=== PATIENT | male | born 2005 | race Asian ===

== ENCOUNTER 2024-07-10 06:20 | Inpatient (IN) | payer BC, OTHER, SELFPAY ==
[2024-07-10] MEDS ORDERED: fentaNYL 50 mcg/mL 1 mL Vial ONE ×2 (06:31→07:22)
[2024-07-10] MEDS ORDERED: CEFAZOLIN 2 GM VIAL ONE (06:32)
[2024-07-10] MEDS ORDERED: Sodium Chloride 0.9% 100 ML ONE (06:32)
[2024-07-10] MEDS ORDERED: Boostrix 0.5 ML (Tdap) VIAL (>/=7 yrs of age) ONE (06:33)
[2024-07-10 06:41] LABS: Hematocrit 40.6 % (42.0-52.0); Hemoglobin 12.6 g/dL (14.0-18.0); Mean Corpuscular Hemoglobin 19.4 pg (27.0-31.0); Mean Corpuscular Volume 62.6 fL (78.0-98.0); Mean Platelet Volume 8.7 fL (7.4-10.4); Platelet Count 316 10x3/uL (130-400); RBC Distribution Width 17.5 % (11.5-14.5); Red Blood Cell (RBC) Count 6.49 mill/uL (4.70-6.10)
[2024-07-10 06:47] LABS: Alcohol 167.1 mg/dL (Less than 10)
[2024-07-10 06:50] LABS: ALT (SGPT) 64 U/L (Less than 45); AST (SGOT) 192 U/L (11-34); Albumin 4.3 g/dL (3.1-4.5); Alkaline Phosphatase 59 U/L (40-110); Anion Gap 20 mmol/L (10-20); BUN (Urea Nitrogen) 9 mg/dL (8.9-20.6); Bilirubin, Total 1.1 mg/dL (0.3-1.2); Calc. Creatinine Clearance 0 mL/min (70-130); Calcium 8.7 mg/dL (7.8-10.44); Carbon Dioxide 17 mmol/L (22-29); Chloride 111 mmol/L (98-107); Estimated GFR 102; Glucose 116 mg/dL (70-105); Lipase 26 U/L (8-78); Potassium 3.8 mmol/L (3.5-5.1); Protein, Total 7.3 g/dL (6.0-8.3); Sodium 144 mmol/L (136-145)
[2024-07-10 06:53] LABS: INR-International Normal Ratio 1.2; PTT 30.6 sec (22.9-36.1)
[2024-07-10 06:54] LABS: Troponin I Less than 0.010 ng/mL (< 0.028)
[2024-07-10 07:18] LABS: Band 3 % (5-11); Lymphocytes 4 % (21-51); Microcytosis SLIGHT = 6-15 cells HPF (0-5); Monocytes 4 % (0-10); Neutrophil 89 % (42-75); Platelet Adequacy Comment Platelets Normal; Polychromasia SLIGHT = 2-3 cells HPF (0-2); Toxic Granulation SLIGHT; Vacuoles SLIGHT
[2024-07-10] MEDS ORDERED: Glucagon 1 MG/ML KIT IM PRN (07:58)
[2024-07-10] MEDS ORDERED: hydrALAZINE 20 MG/ML VIAL SLOW IVP PRN (07:58)
[2024-07-10] MEDS ORDERED: Dextrose 50% Abboject 50 ML SYRINGE SLOW IVP PRN (07:58)
[2024-07-10] MEDS ORDERED: Dextrose 5% in Water 1,000 ML IV PRN (07:58)
[2024-07-10] MEDS ORDERED: Ondansetron PF 4 MG/2 ML Vial IVP PRN (07:58)
[2024-07-10] MEDS ORDERED: Ondansetron ODT 4 MG TAB PO PRN (07:58)
[2024-07-10] MEDS ORDERED: Acetaminophen 325 MG TAB PO PRN (07:58)
[2024-07-10] MEDS: TETANUS, DIPHTHERIA TOX,ADULT (TDVAX) 0.5 ML VIAL IM ONE (11:41)
[2024-07-10 11:53] LABS: Hematocrit 39.3 % (42.0-52.0); Hemoglobin 12.4 g/dL (14.0-18.0)
[2024-07-10] MEDS ORDERED: Iopamidol 370 76% 100 ML VIAL ONE ×2 (12:41→12:46)
[2024-07-10] MEDS ORDERED: Methocarbamol 500 MG TAB ONE (13:53)
[2024-07-10] MEDS ORDERED: HYDROcodone/Acetaminophen 5/325 mg Tablet ONE (13:54)
[2024-07-10] MEDS: HYDROcodone/Acetaminophen 5/325 mg Tablet PO PRN (13:59)
[2024-07-10] MEDS: Methocarbamol 500 MG TAB PO PRN (14:01)
[2024-07-10 16:14] VITALS: BMI 25.0
[2024-07-10 18:54] LABS: Hematocrit 38.6 % (42.0-52.0); Hemoglobin 11.9 g/dL (14.0-18.0)
[2024-07-11] MEDS: Melatonin 3 MG TAB PO PRN (00:16)
[2024-07-11 00:56] LABS: Hematocrit 36.3 % (42.0-52.0); Hemoglobin 11.5 g/dL (14.0-18.0)
[2024-07-11] MEDS: Morphine 2 MG/ML VIAL SLOW IVP SCH (01:02)
[2024-07-11] MEDS: Acetaminophen/Codeine 30-300mg Tablet PO PRN (01:57)
[2024-07-11 05:06] LABS: #Basophils 0.03 10x3/uL (0.0-0.2); %Basophils 0.2 % (0.0-1.0); %Eosinophils 0.4 % (0.0-10.0); %Lymphocytes 6.1 % (21.0-51.0); %Neutrophils 84.4 % (42.0-75.0); Hematocrit 36.7 % (42.0-52.0); Hemoglobin 11.4 g/dL (14.0-18.0); Mean Corpuscular HGB CONC 31.1 g/dL (32.0-36.0); Mean Corpuscular Hemoglobin 19.2 pg (27.0-31.0); Mean Corpuscular Volume 61.7 fL (78.0-98.0); Mean Platelet Volume 9.4 fL (7.4-10.4); Platelet Count 221 10x3/uL (130-400); RBC Distribution Width 16.6 % (11.5-14.5); Red Blood Cell (RBC) Count 5.95 mill/uL (4.70-6.10)
[2024-07-11 05:22] LABS: ALT (SGPT) 41 U/L (Less than 45); AST (SGOT) 57 U/L (11-34); Albumin 3.8 g/dL (3.1-4.5); Alkaline Phosphatase 49 U/L (40-110); Anion Gap 14 mmol/L (10-20); BUN (Urea Nitrogen) 11 mg/dL (8.9-20.6); Bilirubin, Total 1.8 mg/dL (0.3-1.2); Calc. Creatinine Clearance 167 mL/min (70-130); Calcium 8.8 mg/dL (7.8-10.44); Carbon Dioxide 23 mmol/L (22-29); Chloride 103 mmol/L (98-107); Estimated GFR 132; Globulin 2.8 g/dL (2.4-3.5); Glucose 102 mg/dL (70-105); Potassium 3.8 mmol/L (3.5-5.1); Protein, Total 6.6 g/dL (6.0-8.3); Sodium 136 mmol/L (136-145)
[2024-07-11] MEDS: Enoxaparin 40 MG (0.4 mL) SYRINGE SC SCH (20:03)
[2024-07-12 09:19] LABS: #Basophils 0.07 10x3/uL (0.0-0.2); %Basophils 0.4 % (0.0-1.0); %Eosinophils 0.7 % (0.0-10.0); %Lymphocytes 7.9 % (21.0-51.0); %Monocytes 6.6 % (0.0-10.0); %Neutrophils 83.6 % (42.0-75.0); Hematocrit 42.4 % (42.0-52.0); Hemoglobin 12.9 g/dL (14.0-18.0); Mean Corpuscular HGB CONC 30.4 g/dL (32.0-36.0); Mean Corpuscular Hemoglobin 19.1 pg (27.0-31.0); Mean Corpuscular Volume 62.8 fL (78.0-98.0); Platelet Count 232 10x3/uL (130-400); RBC Distribution Width 17.7 % (11.5-14.5); Red Blood Cell (RBC) Count 6.75 mill/uL (4.70-6.10); Reflex for Review?? YES
[2024-07-12 10:08] LABS: Band 2 % (5-11); Lymphocytes 7 % (21-51); Macrocytosis SLIGHT = 6-15 cells HPF (0-5); Microcytosis SLIGHT = 6-15 cells HPF (0-5); Monocytes 9 % (0-10); Neutrophil 78 % (42-75); Platelet Adequacy Comment Platelets Normal; Polychromasia SLIGHT = 2-3 cells HPF (0-2); Reactive Lymphocytes 4 % (0-10); Schistocytes SLIGHT = 2-5 cells HPF (0-1); Target Cells SLIGHT = 2-5 cells HPF (0-1); Toxic Granulation SLIGHT; Vacuoles SLIGHT
[2024-07-12 17:16] VITALS: BP 115/79; TEMP 98.1
== END 2024-07-12 19:45 | disposition home or self-care (01) | DRG 551 ==
LOC: ERS 06:20 → ERHOLD 08:07 → SURG B 15:47
PROVIDERS: ADMIT Surgery; ATTEND Surgery
PROC: 2W35X3Z Immobilization of Back using Brace (ICD-10-PCS; principal; 2024-07-11)
DX: S32.011A Stable burst fracture of first lumbar vertebra, initial encounter for closed fracture (principal); S37.061A Major laceration of right kidney, initial encounter; S37.001A Unspecified injury of right kidney, initial encounter; S00.83XA Contusion of other part of head, initial encounter; S00.81XA Abrasion of other part of head, initial encounter; V89.2XXA Person injured in unspecified motor-vehicle accident, traffic, initial encounter; Y92.411 Interstate highway as the place of occurrence of the external cause; F17.290 Nicotine dependence, other tobacco product, uncomplicated; F12.10 Cannabis abuse, uncomplicated; F19.90 Other psychoactive substance use, unspecified, uncomplicated
CPT/HCPCS: 36415; 70450; 70486; 71045; 71260; 72125; 72131; 72170; 74174; 74177; 80053; 80307; 83690; 84484; 85025; 85060; 85610; 85730; 86850; 86900; 86901; 90471; 90715; 93005; 94760; 96365; 96375; G0390; J1650; J2272; J3010; Q9967